=== PATIENT | female | born 1955 | race Caucasian/White ===

== ENCOUNTER 2024-04-20 17:43 | Observation (INO) | payer MEDICARE ==
[~2024-04-20] VITALS: Ht 156.2 cm; Wt 54.0 kg
[~2024-04-20 17:43] MED LIST: BUSPAR15 M1 PO; CYMBALTA60 MG PO; DESYREL50 MG PO; FLEXERIL5 M1 PO; HYDROCO/APAP1 TA9 PO; HYDROXYZ HCL50 MG PO; METHYLPRED4 MG PO; NAPROXEN500 MG PO; OMNICEF300 MG PO; PRAVASTATIN80 MG PO; PREDNISONE50 MG PO; ZOFRAN4 MG/TAB PO
[2024-04-20 17:54] VITALS: BP 108/77
[2024-04-20 18:00] VITALS: BP 119/81
[2024-04-20] MEDS ORDERED: SODIUM CHLORIDE 0.9% 1,000 ML IV ONE (18:05)
[2024-04-20] MEDS ORDERED: MIDAZOLAM HCL 2 MG/2 ML VIAL IV ONE (18:05)
[2024-04-20 18:06] LABS: URINE BILIRUBIN - DIPSTICK Negative (NEGATIVE); URINE BLOOD DIPSTICK Negative (NEGATIVE); URINE GLUCOSE - DIPSTICK Negative (NEGATIVE); URINE KETONE Negative (NEGATIVE); URINE LEUK ESTERASE Negative (NEGATIVE); URINE NITRITE - DIPSTICK Negative (Negative); URINE PROTEIN - DIPSTICK Negative (NEG-TRACE); URINE SPECIFIC GRAVITY <=1.005; URINE UROBILINOGEN - DIPSTICK 0.2 E.U./dL (0.2)
[2024-04-20 18:07] LABS: URINE COLOR Yellow
[2024-04-20 18:09] LABS: BASO% 0.7 % (0-3); HEMATOCRIT 34.8 % (37.0-47.0); HEMOGLOBIN 11.8 g/dl (12.0-16.0); IMMATURE GRANULOCYTES 0.4 % (0.0-5.0); LYMPH% 39.9 % (15-41); MEAN CELL VOLUME 95.9 fL CALC (80.0-100.0); MEAN CORPUSCULAR HGB 32.5 pG CALC (26.0-32.0); MEAN CORPUSCULAR HGB CONC 33.9 g/dL CAL (32.0-36.0); MONO% 8.9 % (2-13); NEUT# 5.17 thou/uL (2.00-7.15); NEUT% 48.1 % (42-76); RED BLOOD COUNT 3.63 mill/uL (4.20-5.60); RED CELL DISTRI WIDTH 11.8 % (11.5-15.5)
[2024-04-20 18:15] LABS: ALKALINE PHOSPHATASE 85 u/l (38-126); BILIRUBIN, TOTAL 0.3 mg/dL (0.02-1.3); BUN 10 mg/dL (8-23); BUN/CREATININE RATIO 14 (12-20 (CALC)); CHLORIDE 110 mmol/l (95-108); CREATININE 0.7 mg/dL (0.5-1.0); ESTIMATED GFR 95 ML/MIN (>=90 (CALC)); ETHYL ALCOHOL 222 mg/dl (0-30); MAGNESIUM 1.9 mg/dL (1.6-2.3); POTASSIUM 3.8 mmol/l (3.5-5.1); SGOT/AST 50 u/l (9-36); SODIUM 139 mmol/l (137-146)
[2024-04-20 18:16] VITALS: BP 103/80
[2024-04-20 18:24] LABS: ALBUMIN 4.5 g/dL (3.2-5.0); ANION GAP 10 (6-22 (CALC)); CARBON DIOXIDE 23 mmol/l (22-30); TOTAL PROTEIN 7.7 g/dL (6.3-8.2)
[2024-04-20 18:30] VITALS: BP 119/73
[2024-04-20] MEDS ORDERED: MAGNESIUM HYDROXIDE 30 ML UDC PO PRN (20:15)
[2024-04-20] MEDS ORDERED: ACETAMINOPHEN 325 MG/TAB PO PRN (20:15)
[2024-04-20] MEDS ORDERED: ONDANSETRON HCl 4 MG/2 ML SDV IV PRN (20:20)
[2024-04-20] MEDS ORDERED: LACTATED RINGER'S 1,000 ML IV ONE (20:20)
[2024-04-20] MEDS ORDERED: LORazepam 2 MG/ML IM PRN (20:20)
[2024-04-20] MEDS ORDERED: chlordiazePOXIDE HCL 25 MG CAP PO PRN (20:20)
[2024-04-20] MEDS ORDERED: LORazepam 2 MG/ML IV PRN (20:20)
[2024-04-20] MEDS ORDERED: ENOXAPARIN SODIUM 40 MG/0.4 ML SYR SC SCH (21:00)
[2024-04-21] VITALS (8 sets, daily range): BP systolic 128–149; BP diastolic 68–79
[2024-04-21 05:41] LABS: ALBUMIN 3.6 g/dL (3.2-5.0); ALKALINE PHOSPHATASE 85 u/l (38-126); ANION GAP 5 (6-22 (CALC)); BILIRUBIN, TOTAL 0.3 mg/dL (0.02-1.3); BUN 8 mg/dL (8-23); BUN/CREATININE RATIO 12 (12-20 (CALC)); CARBON DIOXIDE 25 mmol/l (22-30); CHLORIDE 112 mmol/l (95-108); CHOLESTEROL HDL RATIO 2.5 (<4.4 (CALC)); CREATININE 0.7 mg/dL (0.5-1.0); ESTIMATED GFR 95 ML/MIN (>=90 (CALC)); HDL CHOLESTEROL 82 mg/dL (39.0-59.0); MAGNESIUM 1.8 mg/dL (1.6-2.3); POTASSIUM 4.6 mmol/l (3.5-5.1); SGOT/AST 39 u/l (9-36); SODIUM 137 mmol/l (137-146); TOTAL CHOLESTEROL 203 mg/dl (0-199); TOTAL PROTEIN 6.1 g/dL (6.3-8.2)
[2024-04-21 05:42] LABS: TOTAL TRIGLYCERIDES 412 mg/dl (0-149)
[2024-04-21 05:48] LABS: BASO% 0.7 % (0-3); EOS% 2.5 % (0-8); HEMATOCRIT 33.1 % (37.0-47.0); IMMATURE GRANULOCYTES 0.5 % (0.0-5.0); LYMPH% 39.5 % (15-41); MEAN CELL VOLUME 96.8 fL CALC (80.0-100.0); MEAN CORPUSCULAR HGB 32.2 pG CALC (26.0-32.0); MEAN CORPUSCULAR HGB CONC 33.2 g/dL CAL (32.0-36.0); MONO% 9.9 % (2-13); NEUT# 4.05 thou/uL (2.00-7.15); NEUT% 46.9 % (42-76); RED BLOOD COUNT 3.42 mill/uL (4.20-5.60); RED CELL DISTRI WIDTH 11.8 % (11.5-15.5)
[2024-04-21] MEDS ORDERED: DULOXETINE HCl 30 MG/CAP PO SCH (09:00)
[2024-04-21] MEDS ORDERED: MULTIPLE VITAMIN 10 ML,THIAMINE HCL 100 MG in DEXTROSE 5% / 0.9% NACL 1,000 ML IV SCH (09:00)
[2024-04-21] MEDS ORDERED: busPIRone HCL 5 MG/TAB PO SCH (09:00)
[2024-04-21] MEDS ORDERED: GUAIFENESIN 200 MG/10 ML UDC PO PRN (13:45)
[2024-04-21] MEDS ORDERED: DIPHENOXYLATE W/ ATROPINE 2.5 MG TAB PO SCH (18:43)
[2024-04-21] MEDS ORDERED: traZODone HCL 50 MG/TAB PO SCH (21:00)
[2024-04-22 00:01] VITALS: BP 113/59
[2024-04-22 04:17] VITALS: BP 105/56
[2024-04-22 05:31] LABS: BASO% 0.3 % (0-3); EOS% 2.8 % (0-8); HEMATOCRIT 31.4 % (37.0-47.0); HEMOGLOBIN 10.6 g/dl (12.0-16.0); IMMATURE GRANULOCYTES 0.2 % (0.0-5.0); LYMPH% 41.7 % (15-41); MEAN CORPUSCULAR HGB 32.4 pG CALC (26.0-32.0); MEAN CORPUSCULAR HGB CONC 33.8 g/dL CAL (32.0-36.0); MONO% 9.5 % (2-13); NEUT# 2.92 thou/uL (2.00-7.15); NEUT% 45.5 % (42-76); RED BLOOD COUNT 3.27 mill/uL (4.20-5.60); RED CELL DISTRI WIDTH 11.9 % (11.5-15.5)
[2024-04-22 06:01] LABS: ALBUMIN 3.2 g/dL (3.2-5.0); BILIRUBIN, TOTAL 0.4 mg/dL (0.02-1.3); CREATININE 0.7 mg/dL (0.5-1.0); MAGNESIUM 1.8 mg/dL (1.6-2.3); TOTAL PROTEIN 5.6 g/dL (6.3-8.2)
[2024-04-22 06:11] LABS: POTASSIUM 3.4 mmol/l (3.5-5.1)
[2024-04-22 06:25] VITALS: BP 120/62
[2024-04-22 11:00] VITALS: BP 120/69
[2024-04-22] MEDS ORDERED: LIBRIUM25 MG PO (11:09)
[2024-04-22] MEDS ORDERED: FOLIC ACID1 M1 PO (11:09)
== END 2024-04-22 14:42 | disposition home or self-care (01) ==
LOC: ED 17:43 → ED-I 19:45 → MS2 20:13 → ED 20:13 → MS2 20:13
PROVIDERS: Nurse Practitioner; ADMIT Student in an Organized Health Care Education/Training Program; ATTEND Student in an Organized Health Care Education/Training Program
DX: F10.132 Alcohol abuse with withdrawal with perceptual disturbance (principal); F10.129 Alcohol abuse with intoxication, unspecified; R56.9 Unspecified convulsions; Y90.7 Blood alcohol level of 200-239 mg/100 ml; F41.8 Other specified anxiety disorders; R19.7 Diarrhea, unspecified; Z72.0 Tobacco use
CPT/HCPCS: J1650; J1953; J2060

== ENCOUNTER 2024-04-28 20:05 | Emergency (ER) | payer MEDICARE ==
[~2024-04-28 20:05] MED LIST changes: +FOLIC ACID1 M1 PO; +LIBRIUM25 MG PO
== END 2024-04-28 20:22 | disposition left against medical advice (07) ==
LOC: ED 20:05 → LWOBS 20:22
DX: Z53.21 Procedure and treatment not carried out due to patient leaving prior to being seen by health care provider (principal)

== ENCOUNTER 2024-04-28 23:02 | Emergency (ER) | payer MEDICARE ==
[~2024-04-28] VITALS: Ht 156.2 cm; Wt 54.0 kg
[2024-04-28 23:11] VITALS: BP 115/77
== END 2024-04-28 23:59 | disposition left against medical advice (07) ==
LOC: ED 23:02
DX: R56.9 Unspecified convulsions (principal); Z53.29 Procedure and treatment not carried out because of patient's decision for other reasons; Z72.0 Tobacco use